=== PATIENT | female | born 1930 ===

== ENCOUNTER → 2016-12-08 | Day surgery (SDC) | payer MEDICARE, OTHER ==
--- NOTE | 2016-12-07 14:40 | Opthalmology H&P ---
Ophthalmology H&P H&P Chief Complaint: decreased vision in left eye HPI Vision Affects Ability to: read, focus/use eyes together, manage personal affairs HPI Narrative blurry vision Exam Visual Acuity: OD: 20/200 OS: CF Tension: OD: 14 OS: 11 Eye Exam: normal OU: external exam, palpebral fissure-width, marginal reflex distance, levator function, corneas, anterior chambers, findings: lens - OD: ns OS: ns, fundus exam - poor view OS Assessment/Plan Diagnosis: (1) Cataract Treatment Plan: cataract extraction w/ lens implant Goals of Treatment: improvement of vision, enhance quality of life Attestation Attestation The risks and benefits of the surgery as well as alternative procedures were explained to the patient in detail. TI LAURA Dec 07, 2016 14:40
--- NOTE | 2016-12-07 14:44 | Pre-Procedure Note/Attestation ---
Pre-Procedure Note/Attestation Complete Prior to Procedure Planned Procedure: left Procedure Narrative: phaco with IOL, OS Indications for Procedure Pre-Operative Diagnosis: cataract, OS Attestation I attest that I discussed the nature of the procedure; its benefits; risks and complications; and alternatives (and the risks and benefits of such alternatives ), prior to the procedure, with the patient (or the patient's legal medical claims representative). I attest that, if there was a reasonable possibility of needing a blood transfusion, the patient (or the patient's legal medical claims representative) was given the [facility] standardized written summary, pursuant to the [place] Blood Safety Act ([place] Health and Safety Code # 1645, as amended). I attest that I re-evaluated the patient just prior to the surgery and that there has been no change in the patient's H&P, except as documented below: TI LAURA Dec 07, 2016 14:44
[2016-12-08] VITALS (10 sets, daily range): BP systolic 123–139; BP diastolic 53–74
[~2016-12-08] VITALS: Ht 157.5 cm; Wt 50.8 kg
[~2016-12-08] MED LIST: AMLODIPINE BESY10 MG ORAL; Akten 3.5% 1ml Btl LEFT EYE ONE; BSS 15ml BTL ONE; BSS PLUS ONE; DONEPEZIL HCL10 M2 ORAL; Dexamethasone 4mg/ml vial ONE; EPINEPHrine 1mg/1ml Amp ONE; Ketorolac Tromethamine Opth Soln LEFT EYE SCH; LORAZEPAM0.5 MG ORAL; LR 1000ml 1,000 ML IVLG SCH; LR 1000ml ONE; Maxitrol Opth Oint 3.5gm ONE; Midazolam 2mg/2ml Inj ONE; NS Irrig 1000ml ONE; Povidone-Iodine 5% opth solution ONE; Pred Forte 1% Opth Susp 1ml ONE; Propofol 200mg/20ml IV ONE; Sodium Hyaluronate 14 mg/ml 0.85ml ONE; Sterile Water Irrig 1000ml IRRIG ONE; Tetracaine 0.5% Opth Soln ONE; acetaZOLAMIDE 500mg Inj ONE; fentaNYL 100 mcg/2 mL IV ONE; fentaNYL 100 mcg/2 mL IV PRN
[2016-12-08] MEDS: Cyclopentolate 1% Opth Sol LEFT EYE SCH ×3 (09:32→10:15)
[2016-12-08] MEDS: Tropicamide 1% Opth Soln LEFT EYE SCH ×3 (09:33→10:16)
[2016-12-08] MEDS: Phenylephrine 10% Opth Soln 5ml LEFT EYE SCH ×3 (09:33→10:16)
[2016-12-08] MEDS: Tobramycin Op Soln 0.3% LEFT EYE SCH ×3 (09:34→10:16)
--- NOTE | 2016-12-08 11:57 | Anethesia Preoperative Eval ---
Anesthesia Pre-op PMH/ROS General Date of Evaluation: Dec 08, 2016 Time of Evaluation: 11:30 Anesthesiologist: Brissa ASA Score: ASA 2 Mallampati Score Class I : Soft palate, uvula, fauces, pillars visible Class II: Soft palate, uvula, fauces visible Class III: Soft palate, base of uvula visible Class IV: Only hard plate visible Mallampati Classification: Class II Surgeon: Katty Diagnosis: L eye cataract Surgical Procedure: L eye cataract extraction Anesthesia History: none Family History: no anesthesia problems Allergies: Coded Allergies: No Known Allergies (Unverified , 12/06/16) Medications: see eMAR Past Medical History Cardiovascular: Reports: HTN, Denies: CAD, NC, valve dz, arrhythmia, other Pulmonary: Denies: asthma, COPD, MOON, other Gastrointestinal/Genitourinary: Reports: GERD, Denies: CRI, ESRD, other Neurologic/Psychiatric: Denies: dementia, CVA, depression/anxiety, TIA, other Endocrine: Denies: DM, hypothyroidism, steroids, other HEENT: Reports: cataract (L), cataract (R), Denies: glaucoma, [place] (L), [place] (R), other Hematology/Immune: Denies: anemia, DVT, bleeding disorder, other Musculoskeletal/Integumentary: Reports: DJD, Denies: OA, RA, DDD, edema, other PMH Narrative: as above PSxH Narrative: see H&P Anesthesia Pre-op Phys. Exam Physician Exam Last Vital Signs Date Time Temp Pulse Resp B/P (MAP) Pulse Ox O2 Delivery O2 Flow Rate FiO2 12/08/16 09:46 97.0 51 20 130/58 96 Room Air Constitutional: NAD Neurologic: CN 2-12 intact Cardiovascular: RRR, no M/R/G Respiratory: CTA Airway Exam Mallampati Score: Class II MO: limited Neck: stiff Teeth: missing Dentures: upper, lower Anesthesia Pre-op A/P Labs see chart Studies Pre-op Studies: EKG - NSR Risk Assessment & Plan Assessment: ASA 2 Plan: OSEI PAUL M.D. Dec 08, 2016 11:57
--- NOTE | 2016-12-08 14:23 | Immediate Post-Op Evaluation ---
Immediate Post-Op Evalulation Immediate Post-Op Evalulation Procedure: L eye cataract extraction with IOL Date of Evaluation: Dec 08, 2016 Time of Evaluation: 12:47 IV Fluids: 400 Blood Products: none Estimated Blood Loss: none Urinary Output: none Blood Pressure Systolic: 132 Blood Pressure Diastolic: 56 Pulse Rate: 72 Respiratory Rate: 20 O2 Sat by Pulse Oximetry: 98 Temperature (Fahrenheit): 97.6 Pain Score (1-10): 2 Nausea: No Vomiting: No Complications none Patient Status: awake, patent, none Hydration Status: adequate OSEI BELL M.D. Dec 08, 2016 14:23
--- NOTE | 2016-12-08 14:24 | 48 Hour Post Anesthesia Eval ---
Post Anesthesia Evaluation Procedure: L eye cataract extraction with IOL Date of Evaluation: Dec 08, 2016 Time of Evaluation: 14:23 Blood Pressure Systolic: 128 0: 74 Pulse Rate: 68 Respiratory Rate: 20 Temperature (Fahrenheit): 97.6 O2 Sat by Pulse Oximetry: 98 Airway: patent Nausea: No Vomiting: No Pain Intensity: 1 Hydration Status: adequate Cardiopulmonary Status: stable Mental Status/LOC: patient returned to baseline Follow-up Care/Observations: n/a Post-Anesthesia Complications: none Follow-up care needed: ready to discharge OSEI BELL M.D. Dec 08, 2016 14:24
--- NOTE | 2016-12-09 09:14 | Brief Operative Note ---
Immediate Post Operative Note Operative Note Chief Complaint: blurry vision Pre-op Diagnosis: cataract, OS Procedure: phaco with IOl, OS Post-op Diagnosis: pseudophakia Post-op Diagnosis: same as pre-op Findings: consistent w/pre-op dx studies Surgeon: Katty Anesthesiologist: Brissa Anesthesia: MAC Specimen: none Complications: none Condition: stable Fluids: LR Estimated Blood Loss: none Drains: none Implant(s) used?: Yes TI LAURA Dec 09, 2016 09:14
--- NOTE | 2016-12-09 10:28 | Operative Note - PDOC ---
Operative Note Operative Note Date of Operation/Procedure: Dec 08, 2016 Chief Complaint: blurry vision Pre-op Diagnosis: cataract, OS Procedure: phaco with IOl, OS Post-op Diagnosis: pseudophakia Post-op Diagnosis: same as pre-op Operative Findings: consistent w/pre-op dx studies Surgeon: Katty Anesthesiologist: Brissa Anesthesia: MAC Specimen: none Complications: none Condition: stable Fluids: LR Estimated Blood Loss: none Drains: none Implant(s) used?: Yes Indications for Procedure cataract Description of Procedure This patient has been complaining visually significant cataract in the affected eye with the best corrected visual acuity under moderate glare conditions worse. The patient complains of difficulties with glare in performing activities of daily living and wants to manage personal affairs with comfort and accuracy and see well enough to move with safety at home and outdoors. ~~~ The risks, benefits and alternatives of the procedure were discussed with the patient in the office prior to scheduling surgery. All questions from the patient were answered after the surgical procedure was explained in detail. The risks of the procedure as explained to the patient include, but are not limited to, pain, infection, bleeding, loss of vision, retinal detachment, need for further surgery, loss of lens nucleus, double vision, etc. Alternative procedures were discussed which include, to do nothing or seek a second opinion. Informed consent for this procedure was obtained from the patient. The patient was referred to a primary care physician for a cardiopulmonary clearance prior to surgery, after proper evaluation was done patient was properly scheduled for outpatient surgery. The patient was brought to the operating room where the anesthesiologist established I.V. lines and cardiac monitoring leads. Mild intravenous sedation was administered.~~ The patient was then prepared with a 5% solution of povidone -iodine to the conjunctival fornix and lashes, and a 10% solution of povidone- iodine to the lids and periorbital skin. The patient was then draped in the usual sterile fashion. A lid speculum was then placed in the operative eye. A keratome blade was then used to create a biplanar incision into the anterior chamber. Viscoelastics was then instilled into the anterior chamber. A capsulorrhexis was then fashioned with an utrata forceps followed by hydrodissection and hydrodelineation of the dense lens. Paracentesis incision was made at 3 o'clock with sharp blade. The phacoemulsification unit, after being properly adjusted~ and tested, was then used to emulsify the nucleus. Residual cortical material was aspirated with the irrigation and aspiration unit. Healon was then instilled into the anterior chamber. The corneal wound was then enlarged to the size of the optic with the priyanka keratome blade. The intraocular lens was then inspected for right~ power and size~ and thought to be satisfactory. Then the lens was gently placed in the capsular bag. Positioning within the capsular bag was confirmed by direct visualization. Optic centration was accomplished with a Sinskey hook. Viscoelastics~ was removed from the anterior chamber using the irrigation and aspiration unit. The corneal wound was then tested for leaks and none were found. The lid speculum were then removed. Sponge and needle counts were correct. An eye patch and shield were placed over the operative eye. The patient was taken to the recovery room in stable condition. There were no complications. The patient tolerated the procedure well. The patient was then transferred to the ambulatory surgery unit in stable and satisfactory condition , was given detailed written instructions and asked to follow up~ in the office the next day. ~ ~ Dictated & Transcribed: [facility] Dara GALLEGO JAMES Dec 09, 2016 10:28
== END | disposition home or self-care (01) ==
LOC: SUR 06:41
DX: H26.9 Unspecified cataract (principal); I10 Essential (primary) hypertension; K21.9 Gastro-esophageal reflux disease without esophagitis; M19.90 Unspecified osteoarthritis, unspecified site
CPT/HCPCS: 66984; J0171; J1100; J2250; J2704; J3010; J3370; J7120; V2632; 94003; 94150